=== PATIENT | male | born 1945 | race Caucasian/White ===

== ENCOUNTER 2021-01-20 18:36 | Emergency (ER) | payer OTHER ==
[2021-01-20 19:52] LABS: Absolute Lymphocytes (CBC) 2.1 K/uL (0.7-4.9); Basophils % 1.2 % (0-1.3); Hematocrit 44.2 % (39.6-49.0); MPV 8.3 fL (7.6-11.3); RBC Red Blood Cell Count 5.34 M/uL (4.33-5.43)
[2021-01-20] MEDS ORDERED: NA CHLORIDE 0.9% 500 ML ONE (20:02)
[2021-01-20 20:07] LABS: ALT/SGPT 26 U/L (12-78); AST/SGOT 16 U/L (15-37); Albumin 3.9 g/dL (3.4-5.0); Alkaline Phosphatase 108 U/L (45-117); BUN Blood Urea Nitrogen 18 mg/dL (7-18); Bicarbonate 26 mmol/L (21-32); Bilirubin Direct < 0.1 mg/dL (0-0.2); Bilirubin Total 0.3 mg/dL (0.2-1.0); Glucose Level 97 mg/dL (74-106); Lipase 72 U/L (73-393); Potassium 3.9 mmol/L (3.5-5.1); Protein, Total 7.7 g/dL (6.4-8.2); Sodium Level 140 mmol/L (136-145)
--- NOTE | 2021-01-20 20:10 | RAD REPORT ---
EXAM DESCRIPTION: CT - Stone Protocol - 01/20/2021 7:54 pm CLINICAL HISTORY: Abdominal pain. Left flank pain COMPARISON: None. TECHNIQUE: Computed axial tomography of the abdomen pelvis was obtained without oral or IV contrast. Lack of IV and oral contrast limits evaluation of solid organs, bowel, and vessels. Coronal reformat bright images were obtained and reviewed. All CT scans are performed using dose optimization technique as appropriate and may include automated exposure control or mA/KV adjustment according to patient size. FINDINGS: A renal calculus is not seen. An ureteral calculus is not noted. A bladder calculus is not present. 5.6 centimeter right renal cyst. Cystic structures in the left kidney likely parapelvic cys ts. Smaller right renal cyst is suspected. The liver, spleen, pancreas and left adrenal appear grossly normal. The right adrenal gland contains calcification probably secondary to either prior bleed or prior infection. There is no evidence of diverticulitis. The appendix appears normal Postsurgical changes of a right inguinal hernia repair. Small left inguinal hernia contains fat. Dege nerative changes involve the spine. Small umbilical hernia IMPRESSION: Negative for a genitourinary calculus
[2021-01-20 20:44] LABS: Urine Blood Negative (Negative); Urine Glucose Negative (Negative); Urine Protein Negative (Negative); Urine Specific Gravity 1.025 (1.005-1.030)
[2021-01-20 21:01] LABS: Urine Bacteria <20 /HPF (NONE SEEN); Urine RBC <5 /HPF (NONE SEEN)
--- NOTE | 2021-01-20 21:06 | EDPHYS ---
Physician Documentation [facility] Name: Mitesh Madera Age: 75 yrs Sex: Male : 1945 Arrival Date: 01/20/2021 Time: 18:39 Bed 2 Private MD: Wilberto Laird V ED Physician Bernabe Vance HPI: 01/20 19:35 This 75 yrs old Male presents to ER via Ambulatory with complaints of Flank cp Pain, Back Pain. 19:35 The patient complains of pain in the left low back. The pain radiates to the left lower cp abdomen/groin. Onset: The symptoms/episode began/occurred 4 day(s) ago. Modifying factors: the symptoms are aggravated by walking. 19:35 Associated signs and symptoms: Pertinent negatives: diarrhea, dysuria, fever, cp hematuria, pain radiating to the lower extremities, vomiting. Severity of pain: in the emergency department the pain has improved mildly. Historical: - Allergies: 19:19 PENICILLINS (Hives); bb - Home Meds: 19:19 None [Active]; bb - PMHx: 19:19 Kidney stones; hypoglycemia; bb - PSHx: 19:19 corneal transplant x 2; cataracts; Hernia repair; Lithotripsy; bb - Immunization history:: Adult Immunizations up to date, Client reports receiving the 2nd dose of the Covid vaccine. - Social history:: Smoking status: Patient denies any tobacco usage or history of. ROS: 19:40 Constitutional: Negative for body aches, chills, fever, poor PO intake. cp 19:40 Eyes: Negative for injury, pain, redness, and discharge. cp 19:40 Back: Positive for flank pain, on the left, Negative for injury or acute deformity. cp 19:40 Cardiovascular: Negative for chest pain, edema, palpitations. cp 19:40 Respiratory: Negative for cough, shortness of breath, wheezing. 19:40 Abdomen/GI: Negative for abdominal pain, nausea, vomiting, and diarrhea, black/tarry stool, rectal bleeding. 19:40 : Negative for urinary symptoms, testicular pain 19:40 Skin: Negative for rash. 19:40 Neuro: Negative for altered mental status, numbness, weakness. 19:40 All other systems are negative. Exam: 19:45 Constitutional: The patient appears in no acute distress, alert, awake, cp non-diaphoretic, non-toxic, well developed, well nourished, uncomfortable. 19:45 Head/Face: Normocephalic, atraumatic. cp 19:45 Chest/axilla: Inspection: normal. 19:45 Cardiovascular: Rate: bradycardic, Rhythm: regular. 19:45 Respiratory: the patient does not display signs of respiratory distress, Respirations: normal, no use of accessory muscles, no retractions, labored breathing, is not present. 19:45 Abdomen/GI: Inspection: abdomen appears normal, Bowel sounds: active, all quadrants, Palpation: abdomen is soft and non-tender, in all quadrants, rebound tenderness, is not appreciated, involuntary guarding, is not appreciated. 19:45 Back: pain, that is moderate, of the left low back, ROM is painful, vertebral tenderness, is not appreciated. 19:45 Skin: cellulitis, is not appreciated, no rash present. Vital Signs: 19:16 BP 144 / 83; Pulse 46; Resp 18 S; Temp 98.3(O); Pulse Ox 96% on R/A; Weight 88.45 kg bb (R); Height 5 ft. 8 in. (172.72 cm) (R); Pain 10/10; 19:50 BP 168 / 91; Pulse 62; Resp 18; Pulse Ox 97% on R/A; Pain 0/10; lp1 21:31 BP 127 / 81; Pulse 59; Resp 18; Pulse Ox 97% on R/A; lp1 19:16 Body Mass Index 29.65 (88.45 kg, 172.72 cm) MDM: 19:13 Patient medically screened. cp 21:05 Data reviewed: vital signs, nurses notes, lab test result(s), radiologic studies, CT cp scan. 21:05 Counseling: I had a detailed discussion with the patient and/or guardian regarding: the historical points, exam findings, and any diagnostic results supporting the discharge/admit diagnosis, lab results, radiology results, to return to the emergency department if symptoms worsen or persist or if there are any questions or concerns that arise at home. Response to treatment: the patient's symptoms have markedly improved after treatment, and as a result, I will discharge patient. 01/20 19:29 Order name: Basic Metabolic Panel; Complete Time: 20:37 cp 01/20 20:37 Interpretation: Normal except: GFR 72. cp 01/20 19:29 Order name: CBC with Diff; Complete Time: 20:37 cp 01/20 20:37 Interpretation: Reviewed. cp 01/20 19:29 Order name: Hepatic Function; Complete Time: 20:37 cp 01/20 20:37 Interpretation: Normal except: GLOB 3.8; A/G 1.0. cp 01/20 19:29 Order name: Lipase; Complete Time: 20:37 cp 01/20 19:29 Order name: Urine Microscopic Only; Complete Time: 21:03 cp 01/20 20:44 Order name: Urine Dipstick-Ancillary; Complete Time: 21:03 EDMS 01/20 19:29 Order name: IV Saline Lock; Complete Time: 19:44 cp 01/20 19:29 Order name: Labs collected and sent; Complete Time: 19:44 cp 01/20 19:29 Order name: Urine Dipstick-Ancillary (obtain specimen); Complete Time: 20:44 cp 01/20 19:29 Order name: CT Stone Protocol; Complete Time: 20:37 cp 01/20 20:38 Interpretation: Report reviewed. cp Administered Medications: 20:07 Drug: NS 0.9% 500 ml Route: IV; Rate: 250 ml/hr; Site: right antecubital; lp1 21:15 Follow up: IV Status: Completed infusion; IV Intake: 500ml lp1 21:04 Not Given (Duplicate Order): fentaNYL (PF) 25 mcg IVP once; RASS on ADMIN: Combtv4, jb4 Very Agttd3, Agttd2, Rstlss1, AlertClm0, Drwsy-1, Lt Sdtn-2, Mod Sdtn-3, Dp Sdtn-4, UnArsble-5 21:09 Drug: fentaNYL (PF) 25 mcg Route: IVP; Site: right antecubital; jb4 21:32 Follow up: Response: Marked relief of symptoms; Pain is decreased lp1 Disposition: 01/21 04:31 Co-signature as Attending Physician, Bernabe Vance MD. pkl Disposition: 01/20/21 21:05 Discharged to Home. Impression: Low back pain, Left Flank Pain. - Condition is Stable. - Discharge Instructions: Back Pain, Adult, Heat Therapy, Back Exercises. - Prescriptions for Mobic 7.5 mg Oral Tablet - take 1 tablet by ORAL route once daily take with food; 20 tablet. Tramadol 50 mg Oral Tablet - take 1 tablet by ORAL route every 8 hours as needed; 15 tablet. - Medication Reconciliation Form, Thank You Letter, Antibiotic Education, Prescription Opioid Use form. - Follow up: Private Physician; When: 2 - 3 days; Reason: Recheck today's complaints. - Problem is new. - Symptoms have improved. Signatures: Dispatcher [employer] EDMS Bernabe Vance MD MD pkl Mer Stone, RN RN bb Lynne Max RN RN lp1 Vasyl Toro PA PA cp Gilbert Batres, RN RN jb4 Corrections: (The following items were deleted from the chart) 01/20 21:33 21:05 01/20/2021 21:05 Discharged to Home. Impression: Low back pain; Left Flank Pain. lp1 Condition is Stable. Forms are Medication Reconciliation Form, Thank You Letter, Antibiotic Education, Prescription Opioid Use. Follow up: Private Physician; When: 2 - 3 days; Reason: Recheck today's complaints. Problem is new. Symptoms have improved. cp
--- NOTE | 2021-01-20 21:06 | ER ---
Nurse's Notes [facility] Name: Mitesh aMdera Age: 75 yrs Sex: Male : 1945 Arrival Date: 01/20/2021 Time: 18:39 Bed 2 Private MD: Wilberto Laird V Diagnosis: Low back pain;Left Flank Pain Presentation: 01/20 19:16 Chief complaint: Patient states: left flank pain x 3 to 4 days. Coronavirus screen: At bb this time, the client does not indicate any symptoms associated with coronavirus-19. Ebola Screen: No symptoms or risks identified at this time. Initial Sepsis Screen: Does the patient meet any 2 criteria? No. Patient's initial sepsis screen is negative. Does the patient have a suspected source of infection? No. Patient's initial sepsis screen is negative. Risk Assessment: Do you want to hurt yourself or someone else? Patient reports no desire to harm self or others. Onset of symptoms was January 15, 2021. 19:16 Method Of Arrival: Ambulatory bb 19:16 Acuity: DARIA 3 bb Historical: - Allergies: 19:19 PENICILLINS (Hives); bb - Home Meds: 19:19 None [Active]; bb - PMHx: 19:19 Kidney stones; hypoglycemia; bb - PSHx: 19:19 corneal transplant x 2; cataracts; Hernia repair; Lithotripsy; bb - Immunization history:: Adult Immunizations up to date, Client reports receiving the 2nd dose of the Covid vaccine. - Social history:: Smoking status: Patient denies any tobacco usage or history of. Screenin:53 Abuse screen: Denies threats or abuse. Denies injuries from another. Nutritional lp1 screening: No deficits noted. Tuberculosis screening: No symptoms or risk factors identified. Fall Risk None identified. Assessment: 19:45 General: Appears in no apparent distress. Behavior is calm, cooperative. Pain: Denies lp1 pain. Complains of pain in left low back Pain radiates to groin. Neuro: Level of Consciousness is awake, alert, obeys commands, Oriented to person, place, time, situation. Cardiovascular: Patient's skin is warm and dry. Respiratory: Respiratory effort is even, unlabored. GI: No signs and/or symptoms were reported involving the gastrointestinal system. : Denies burning with urination. EENT: No signs and/or symptoms were reported regarding the EENT system. Derm: Skin is pink, warm \T\ dry. Musculoskeletal: No deficits noted. 20:30 Reassessment: Patient is alert, oriented x 3, equal unlabored respirations, skin lp1 warm/dry/pink. Patient denies need for pain medication at this time. 21:32 Reassessment: Patient is alert, oriented x 3, equal unlabored respirations, skin lp1 warm/dry/pink. Patient reports relief with medication administered Patient states feeling better. Vital Signs: 19:16 BP 144 / 83; Pulse 46; Resp 18 S; Temp 98.3(O); Pulse Ox 96% on R/A; Weight 88.45 kg bb (R); Height 5 ft. 8 in. (172.72 cm) (R); Pain 10/10; 19:50 BP 168 / 91; Pulse 62; Resp 18; Pulse Ox 97% on R/A; Pain 0/10; lp1 21:31 BP 127 / 81; Pulse 59; Resp 18; Pulse Ox 97% on R/A; lp1 19:16 Body Mass Index 29.65 (88.45 kg, 172.72 cm) ED Course: 18:39 Patient arrived in ED. mr 18:39 Wilberto Laird MD is Private Physician. mr 19:10 Vasyl Toro [facility]. cp 19:10 Bernabe Vance MD is Attending Physician. cp 19:18 Triage completed. bb 19:19 Arm band placed on Patient placed in an exam room, on a stretcher, on pulse oximetry. bb Family accompanied patient. 19:45 Lynne Max, ISAC is Primary Nurse. lp1 19:53 CT Stone Protocol In Process Unspecified. EDMS 19:53 Patient has correct armband on for positive identification. lp1 21:31 No provider procedures requiring assistance completed. IV discontinued, No lp1 redness/swelling at site. Pressure dressing applied. Administered Medications: 20:07 Drug: NS 0.9% 500 ml Route: IV; Rate: 250 ml/hr; Site: right antecubital; lp1 21:15 Follow up: IV Status: Completed infusion; IV Intake: 500ml lp1 21:04 Not Given (Duplicate Order): fentaNYL (PF) 25 mcg IVP once; RASS on ADMIN: Combtv4, jb4 Very Agttd3, Agttd2, Rstlss1, AlertClm0, Drwsy-1, Lt Sdtn-2, Mod Sdtn-3, Dp Sdtn-4, UnArsble-5 21:09 Drug: fentaNYL (PF) 25 mcg Route: IVP; Site: right antecubital; jb4 21:32 Follow up: Response: Marked relief of symptoms; Pain is decreased lp1 Intake: 21:15 IV: 500ml; Total: 500ml. lp1 Outcome: 21:05 Discharge ordered by MD. cp 21:31 Discharged to home ambulatory, with significant other. lp1 21:31 Condition: good 21:31 Discharge instructions given to patient, Instructed on discharge instructions, follow up and referral plans. medication usage, Demonstrated understanding of instructions, follow-up care, medications, Prescriptions given X 2. 21:33 Patient left the ED. lp1 Signatures: Dispatcher [employer] EDCA [place] mr Mer Stone RN RN bb Lynne Max RN RN lp1 Vasyl Toro PA PA cp Gilbert Batres RN RN jb4 Kayli Munguia, ISAC RN ld1 Corrections: (The following items were deleted from the chart) 19:48 19:35 Inserted saline lock: 20 gauge in right antecubital area, using aseptic ld1 technique. Blood collected. ld1 19:48 19:45 General: Appears in no apparent distress. Behavior is calm, cooperative, ld1 ld1 19:48 19:45 Pain: Denies pain. Complains of pain in left low back Pain radiates to groin Pain ld1 currently is 1 out of 10 on a pain scale. ld1 19:48 19:45 Neuro: Level of Consciousness is awake, alert, obeys commands, Oriented to ld1 person, place, time, situation, ld1 19:48 19:45 Cardiovascular: Patient's skin is warm and dry. ld1 ld1 19:48 19:45 Respiratory: Respiratory effort is even, unlabored, ld1 ld1 19:48 19:45 GI: No signs and/or symptoms were reported involving the gastrointestinal system. ld1 ld1 19:48 19:45 : Denies burning with urination, ld1 ld1 19:48 19:45 EENT: No signs and/or symptoms were reported regarding the EENT system. ld1 ld1 :48 19:45 Derm: Skin is pink, warm \T\ dry. ld1 1 :48 19:45 Musculoskeletal: No deficits noted. ld1 1 :48 19:46 Abuse screen: Denies threats or abuse. Denies injuries from another. ld1 ld1 :48 19:46 Nutritional screening: No deficits noted. ld1 1 :48 19:46 Tuberculosis screening: No symptoms or risk factors identified. ld1 1 :48 19:46 Fall Risk None identified. ld1 [place] [employer] 19:49 19:47 Patient has correct armband on for positive identification. ld1 ld1 :52 19:31 Kayli Munguia, RN is Primary Nurse. ld1 1 : 19:52 Lynne Max, ISAC is Primary Nurse. lp1 lp1
[2021-01-20] MEDS ORDERED: FENTANYL CITR 100 MCG/2 ML ONE (21:23)
[2021-01-20 21:44] VITALS: TEMP 98.3
[2021-01-20 21:45] VITALS: O2SAT 97
[2021-01-20 21:47] VITALS: BP 127/81
== END 2021-01-20 21:33 | disposition home or self-care (01) ==
LOC: ER 18:36
DX: R10.9 Unspecified abdominal pain (principal); Z88.0 Allergy status to penicillin
CPT/HCPCS: 85025; 80048; 36415; 80076; 83690; 76377; 74176; J3010; J7040; 81003; 81015; 96361; 96374; 99284